=== PATIENT | female | born 1975 | race Caucasian/White ===

== ENCOUNTER 2025-03-10 12:47 | Emergency (ER) | payer MEDICAID ==
[~2025-03-10] VITALS: Ht 167.6 cm; Wt 61.0 kg
[2025-03-10 12:51] VITALS: BP 117/84; PULSE 105; RESP 16; O2SAT 95
--- NOTE | 2025-03-10 13:28 | Physician Documentation ---
History of Present Illness ~ Chief Complaint: Medical Clearance Stated Complaint: MED CLEARANCE Time Seen by MD: 13:06 HPI Patient is seen today with complaints of needing to enter sober living situation and wanting to detox from alcohol. Patient states she drinks about a pt of hard liquor every few days. Patient currently denies any alcohol withdrawal symptoms and she denies any chest pain or shortness of breath or abdominal pain or nausea, vomiting, diarrhea or significant past medical history. Patient has no other concern or complaint at this time. Medication Reconciliation Allergies: Coded Allergies: No Known Allergies (Unverified , 03/10/25) Review of Systems Constitutional: Denies: chills, fever, weakness Eyes: Denies: pain, blurred vision ENT: Denies: ear pain, nose pain, throat pain, mouth pain Respiratory: Denies: cough, shortness of breath Cardiovascular: Denies: chest pain, palpitations Gastrointestinal: Denies: abdominal pain, nausea, vomiting Genitourinary: Denies: burning, dysuria Female Genitalia: Denies: vaginal discharge, pelvic pain Neurological: Denies: headache, dizziness Musculoskeletal: Denies: pain, swelling Integumentary: Denies: rash, lesions Allergic/Immunologic: Denies: hives, itching Hematologic/Lymphatic: Denies: no symptoms reported Psychiatric: Denies: depression, anxiety Physical Exam Vital Signs: Temperature: 98.3, Heart Rate: 105, Respiratory Rate: 16, BP: 117/84, Pulse Oximetry: 95, Weight: 61.000 Physical Exam General: Awake and Alert, no acute distress. HEENT: Conjunctiva pink, Sclera clear, Mucus Membranes moist. Neck: Supple without masses and tenderness. Resp: Unlabored. Lungs clear to auscultation bilaterally. Heart: Regular Rate and rhythm, normal S1 and S2 without murmur, rub or gallop. Abdomen: Soft and non tender no organomegaly Extremities: No cyanosis,clubbing or edema. Skin: Warm and Dry. Progress Results/Orders Results/Orders Vital Signs 03/10/25 12:51 Temp 98.3 Pulse 105 Resp 16 B/P (MAP) 117/84 Pulse Ox 95 Medical Decision Making Findings Patient is seen today with complaints of needing to enter sober living situation and wanting to detox from alcohol. Patient states she drinks about a pt of hard liquor every few days. Patient currently denies any alcohol withdrawal symptoms and she denies any chest pain or shortness of breath or abdominal pain or nausea, vomiting, diarrhea or significant past medical history. Patient has no other concern or complaint at this time. Patient is medically cleared to enter detox program and sober living. Patient will return to ED with any worsening, concerning or changing symptoms. Departure Disposition: 01 HOME / SELF CARE / HOMELESS Impression: Primary Impression: General medical exam Condition: Stable Discharge Instructions: Medical Screening Exam Additional Instructions: Patient is medically cleared to enter detox program and sober living. Patient will return to ED with any worsening, concerning or changing symptoms. Referrals: NO PRIMARY CARE PROVIDER (PCP) Signature Scribe Signature: No scribe Attestation: No scribe GABRIELA FAUST PAC Mar 10, 2025 13:28
[2025-03-10 13:33] VITALS: TEMP 98.3
== END 2025-03-10 13:34 | disposition home or self-care (01) ==
LOC: ER 12:47
DX: Z00.8 Encounter for other general examination (principal)
CPT/HCPCS: 99282